=== PATIENT | male | born 1960 | race Two or more races ===

== ENCOUNTER 2021-04-21 02:11 | Inpatient (IN) | payer BC ==
[~2021-04-21] VITALS: Ht 177.8 cm; Wt 86.2 kg
[2021-04-21] MEDS ORDERED: METFORMIN HCL1000 M2 (02:21)
[2021-04-21] MEDS ORDERED: LISINOPRIL10 MG (02:22)
[2021-04-21] MEDS ORDERED: LIPITOR40 M1 (02:24)
[2021-04-21] MEDS ORDERED: PRAVASTATIN SOD20 MG (15:24)
[2021-04-21] MEDS ORDERED: INVOKANA100 MG (15:24)
[2021-04-21] MEDS ORDERED: ALLOPURINOL300 MG (15:24)
== END 2021-04-26 16:06 | disposition home or self-care (01) | DRG 372 ==
LOC: ER 02:11 → MEDJ 07:57
PROVIDERS: ADMIT Internal Medicine; ATTEND Internal Medicine
PROC: BW21YZZ Computerized Tomography (CT Scan) of Abdomen and Pelvis using Other Contrast (ICD-10-PCS; principal; 2021-04-21)
DX: A04.72 Enterocolitis due to Clostridium difficile, not specified as recurrent (principal); E87.1 Hypo-osmolality and hyponatremia; K62.5 Hemorrhage of anus and rectum; K59.09 Other constipation; R10.32 Left lower quadrant pain; I10 Essential (primary) hypertension; E11.9 Type 2 diabetes mellitus without complications; Z79.4 Long term (current) use of insulin; D72.828 Other elevated white blood cell count; Z20.822 Contact with and (suspected) exposure to COVID-19; E78.49 Other hyperlipidemia